=== PATIENT | male | born 1970 | race African-American/Black ===

== ENCOUNTER 2024-05-25 19:36 | Observation (INO) | payer OTHER ==
[2024-05-25] MEDS ORDERED: CLINDAMYCIN 600MG PREMIX IVPB 600 MG/50 ML BAG IVPB ONE ×2 (20:08→20:09)
[2024-05-25 20:10] LABS: HEMATOCRIT 42.9 % (35.4-49); HEMOGLOBIN 13.7 G/dL (11.7-16.9); MCH 27.5 pg (25.7-33.7); MCHC 31.9 g/dl (32.0-35.9); MEAN CELL VOLUME 86.3 fl (80-96); MEAN PLT VOLUME 8.8 fl (7.5-11.1); RBC 4.97 10^6/uL (4.00-5.60); RDW 16.8 % (11.9-15.9); WHITE BLOOD COUNT 5.6 10^3/uL (4.0-10.8)
[2024-05-25] MEDS: CLINDAMYCIN 900 MG PREMIX IVPB 900 MG/50 ML BAG IVPB ONE (20:16)
[2024-05-25 20:38] LABS: ALK PHOS 82 U/L (45-117); ANION GAP 5 mmol/L (4-13); BILIRUBIN,TOTAL 0.6 mg/dl (0.2-1); CALCIUM 9.5 mg/dl (8.5-10.1); CHLORIDE 106 mmol/L (98-107); CO2 28 mmol/L (21-32); CREATININE 0.9 mg/dl (0.6-1.3); GLUCOSE,RANDOM 92 mg/dl (74-106); SGOT/AST 18 U/L (15-37); SGPT/ALT 15 U/L (7-52); SODIUM 139 mmol/L (136-145); TOT PROT 6.1 g/dl (6.4-8.2)
[2024-05-25 20:42] LABS: PLATELET ESTIMATE ADEQUATE
[2024-05-25] MEDS ORDERED: KETOROLAC TROMETHAMINE 30 MG/1 ML VIAL ONE (20:55)
[2024-05-25] MEDS: KETOROLAC TROMETHAMINE 30 MG/1 ML VIAL IVPUSH ONE (20:58)
[2024-05-25] MEDS ORDERED: LIDOCAINE HCL 2% (20ML MULTI-DOSE VIAL) ONE (21:29)
[2024-05-25 22:32] VITALS: BMI 27.8
[2024-05-26] MEDS ORDERED: DEXTROSE 5%-0.45% SALINE 1,000 ML IV SCH (00:01)
[2024-05-26] MEDS: CLINDAMYCIN 600MG PREMIX IVPB 600 MG/50 ML BAG IVPB SCH (03:00)
[2024-05-26 09:06] LABS: HEMATOCRIT 40.8 % (35.4-49); HEMOGLOBIN 12.7 G/dL (11.7-16.9); MCH 26.9 pg (25.7-33.7); MCHC 31.2 g/dl (32.0-35.9); MEAN CELL VOLUME 86.1 fl (80-96); MEAN PLT VOLUME 9.4 fl (7.5-11.1); PLATELET COUNT 200.8 10^3/uL (134-434); RBC 4.74 10^6/uL (4.00-5.60); RDW 16.8 % (11.9-15.9); WHITE BLOOD COUNT 4.5 10^3/uL (4.0-10.8)
[2024-05-26 09:07] LABS: CALCIUM 9.2 mg/dl (8.5-10.1); POTASSIUM 4.5 mmol/L (3.5-5.1)
[2024-05-26] MEDS: amLODIPine BESYLATE 5 MG TABLET (FP) PO SCH (09:35)
[2024-05-26] MEDS: TAMSULOSIN HCL 0.4 MG CAP PO SCH (09:35)
[2024-05-26] MEDS: LISINOPRIL 10 MG TABLET PO SCH (09:35)
[2024-05-26 09:44] VITALS: RESP 18
[2024-05-26 09:55] LABS: PLATELET ESTIMATE ADEQUATE
[2024-05-26] MEDS: DOXYCYCLINE INJECTION 100 MG in DEXTROSE 5%-WATER 100 ML IVPB SCH (12:57)
[2024-05-27] MEDS: ACETAMINOPHEN 325 MG TABLET (FP) PO PRN (02:15)
[2024-05-27 07:44] LABS: HEMATOCRIT 42.1 % (35.4-49); HEMOGLOBIN 13.3 G/dL (11.7-16.9); MCH 27.1 pg (25.7-33.7); MCHC 31.6 g/dl (32.0-35.9); MEAN CELL VOLUME 85.5 fl (80-96); RBC 4.92 10^6/uL (4.00-5.60); RDW 16.9 % (11.9-15.9); WHITE BLOOD COUNT 4.3 10^3/uL (4.0-10.8)
[2024-05-27 07:56] LABS: CALCIUM 9.2 mg/dl (8.5-10.1); CREATININE 0.8 mg/dl (0.6-1.3); POTASSIUM 3.8 mmol/L (3.5-5.1)
[2024-05-27 10:42] VITALS: BP 132/70; PULSE 66; TEMP 98
== END 2024-05-27 11:19 | disposition left against medical advice (07) ==
LOC: FER 19:36 → FM/S 22:00
PROVIDERS: ADMIT Internal Medicine
PROC: 3E03329 Introduction of Other Anti-infective into Peripheral Vein, Percutaneous Approach (ICD-10-PCS; principal; 2024-05-25)
PROC: 3E0333Z Introduction of Anti-inflammatory into Peripheral Vein, Percutaneous Approach (ICD-10-PCS; 2024-05-25)
DX: L03.012 Cellulitis of left finger (principal); I10 Essential (primary) hypertension; F41.9 Anxiety disorder, unspecified; M86.9 Osteomyelitis, unspecified; Z86.16 Personal history of COVID-19; Z87.898 Personal history of other specified conditions; F17.210 Nicotine dependence, cigarettes, uncomplicated; N40.0 Benign prostatic hyperplasia without lower urinary tract symptoms
CPT/HCPCS: 36415; 73140-TC-LT-FY; 73218-TC-LT; 80048; 80053; 85025; 85027; 85651; 86140; 96365; 96366; 96367; 96375; 99285-25; G0378